=== PATIENT | male | born 1950 | race Caucasian/White ===

== ENCOUNTER → 2016-03-04 12:28 | Outpatient (CLI) | payer MEDICARE, BC ==
[2015-08-15 15:21] VITALS: BMI 27.4
[~2016-03-04 12:28] MED LIST: FLUTICASONE PRO16 GM NASAL; LEVAQUIN500 MG PO; MUCINEX DM ER1 EAC1 PO; PREDNISONE20 MG PO; PROTONIX40 MG PO; RESTORIL15 MG PO; SINGULAIR10 MG PO; ULTRAM50 MG PO
== END | disposition home or self-care (01) ==
LOC: D.US 12:28
DX: I65.23 Occlusion and stenosis of bilateral carotid arteries (principal)

== ENCOUNTER → 2016-11-22 07:27 | Outpatient (CLI) | payer MEDICARE, BC ==
[2015-08-15 15:21] VITALS: BMI 27.4
== END | disposition home or self-care (01) ==
LOC: D.RT 07:27
DX: J44.9 Chronic obstructive pulmonary disease, unspecified (principal)

== ENCOUNTER → 2017-06-02 13:42 | Outpatient (CLI) | payer MEDICARE, BC ==
[2015-08-15 15:21] VITALS: BMI 27.4
== END | disposition home or self-care (01) ==
LOC: D.US 13:42
DX: I65.23 Occlusion and stenosis of bilateral carotid arteries (principal)

== ENCOUNTER 2018-01-26 12:24 | Outpatient (CLI) | payer MEDICARE, BC ==
[2018-02-02] MEDS ORDERED: INCRUSE ELLI62.5 MCG INH (10:25)
[2018-02-02] MEDS ORDERED: XALATAN 0.0052.5 ML EACH EYE (10:26)
[2018-02-17 18:04] VITALS: BMI 29.5
== END 2018-01-26 12:25 | disposition home or self-care (01) ==
LOC: D.RT 12:24
DX: J44.9 Chronic obstructive pulmonary disease, unspecified (principal)

== ENCOUNTER → 2018-02-02 08:15 | Outpatient (CLI) | payer MEDICARE, BC ==
[2015-08-15 15:21] VITALS: BMI 27.4
[~2018-02-02 08:15] MED LIST changes: +INCRUSE ELLI62.5 MCG INH; +NORCO 10-325 TA1 TAB PO; +XALATAN 0.0052.5 ML EACH EYE
== END | disposition home or self-care (01) ==
LOC: D.CT 08:00
DX: C85.90 Non-Hodgkin lymphoma, unspecified, unspecified site (principal)

== ENCOUNTER 2018-02-03 06:33 | Day surgery (SDC) | payer MEDICARE, BC ==
[2018-02-02 10:18] LABS: BASOPHILS 0.4 % (0-2); EOSINOPHILS 1.7 % (0-7); HEMATOCRIT 22.6 % (42.0-54.0); HEMOGLOBIN 7.7 g/dL (13.5-17.5); IMMATURE GRANULOCYTES 0.4 % (0-5); LYMPHOCYTES 66.1 % (15-50); MCH 33.6 pg (26.0-34.0); MCHC 34.1 g/dL (31.0-37.0); MCV 98.7 fL (80.0-100.0); MEAN PLATELET VOLUME 9.5 fL (7.4-10.4); MONOCYTES 0.8 % (2-11); NEUTROPHILS 30.6 % (40-80); RBC 2.29 10x6/uL (4.20-6.10); WBC 2.4 10x3/uL (4.8-10.8)
[2018-02-02 10:19] LABS: PLATELET COUNT 57 10x3/uL (130-400)
[2018-02-02 10:31] LABS: APTT 29.6 SECONDS (22.8-39.4); INR 1.03 (0.85-1.17)
[~2018-02-03] VITALS: Ht 175.3 cm; Wt 90.7 kg
--- NOTE | ~2018-02-03 | OP ---
PATIENT NAME: PRETTY GUEVARA MEDICAL RECORD: [id number] :[birth year] LOCATION:D.OPS ADMISSION DATE: SURGEON: VLAD KERNS MD DATE OF OPERATION: 02/03/2018 PREOPERATIVE DIAGNOSES: 1. Lymphoma. 2. Coronary artery disease. 3. Hyperlipidemia. POSTOPERATIVE DIAGNOSES: 1. Lymphoma. 2. Coronary artery disease. 3. Hyperlipidemia. PROCEDURE: 1. Left subclavian vein PowerPort placement. 2. Fluoroscopic interpretation. SURGEON: Vlad Kerns MD REPORT OF PROCEDURE: The patient's left chest was prepped and draped in sterile fashion. A needle was used to cannulate the left subclavian vein and a guidewire was advanced with ease. Fluoro was used to note that the wire was in good position in the venous system. A skin incision was made on the left superior lateral chest and a subcutaneous pouch was made over the pectoral fascia. The catheter was tunneled between this pouch and the wire exit site. The port was then sutured to the pectoral fascia using interrupted 2-0 Prolenes times 2. The catheter was cut with a beveled tip at 22 cm. The dilator trocar device was then placed over the wire and the wire and dilator were removed. The catheter was advanced through the trocar and the trocar was then removed. The catheter aspirated nonpulsatile dark blood and flushed easily with heparinized saline. The Fluoro was used to note that the tip of the catheter was in good position at the right atrial superior vena caval junction. The subcutaneous tissues were then reapproximated with interrupted 3-0 Vicryl and the skin was closed with running subcutaneous 5-0 Monocryl. COMPLICATIONS: None. CONDITION: Stable. ANESTHESIA: General endotracheal and local. BLOOD LOSS: Minimal. TRANSINT:[id number] Voice Confirmation ID: [id number] DOCUMENT ID: [id number] OPERATIVE REPORT [id number] GUEVARAPRETTY NAVARRETE VLAD STRICKLAND MD CC: MONALISA JETT MD [id number] DICTATION DATE: 02/03/18 0943 BROADCAST OPERATIONS ENGINEER: 02/03/18 1113 REG [facility] [address] [place] [address]
[~2018-02-03 06:33] MED LIST changes: -NORCO 10-325 TA1 TAB PO
[2018-02-03 07:43] VITALS: BP 114/68; Ht 175.3 cm; Wt 90.7 kg
[2018-02-03] MEDS ORDERED: NORCO 10-325 TA1 TAB PO (09:39)
== END 2018-02-03 11:45 | disposition home or self-care (01) ==
LOC: D.OPS 06:33 → D.PAN 08:45 → D.OPS 08:45
PROVIDERS: Anesthesiology
DX: C85.90 Non-Hodgkin lymphoma, unspecified, unspecified site (principal); I25.10 Atherosclerotic heart disease of native coronary artery without angina pectoris; E78.5 Hyperlipidemia, unspecified; Z01.812 Encounter for preprocedural laboratory examination

== ENCOUNTER 2018-02-15 11:14 | Inpatient (IN) | payer MEDICARE, BC ==
[~2018-02-15] VITALS: Ht 175.3 cm; Wt 90.7 kg
--- NOTE | ~2018-02-15 | MORECARE ---
CASE MANAGEMENT DISCHARGE SUMMARY PATIENT: PRETTY GUEVARA UNIT: [id number] ADM DATE: 02/15/18 AGE: 67 : 49 SEX: M ROOM/BED: D.2236 AUTHOR: ABDOUL CELAYA PHYSICIAN: REFERRING PHYSICIAN: MONALISA JETT MD DATE OF SERVICE: 02/16/18 Discharge Plan Patient Name: PRETTY [facility]UEVARA [facility] [facility] 1950 Planned Disposition: Home Anticipated Discharge Date: Discharge Date: Expected LOS: Initial Reviewer: [email or web address] Initial Review Date: 02/16/2018 Generated: 02/16/18 4:08 pm DCPIA - Discharge Planning Initial Assessment Updated by [email or web address]: Mary Mims on 02/16/18 3:06 pm * Is the patient Alert and Oriented? Yes * How many steps to enter\exit or inside your home? 1/0 * PCP Dr. Jett * Pharmacy [facility] * Preadmission Environment Home with Family * ADLs Independent * Equipment Bedside Commode CPAP Nebulizer Walker * List name and contact numbers for known caregivers / representatives who currently or will assist patient after discharge: D[facility] - [phone] [facility] [phone] * Verbal permission to speak to the caregivers and representatives has been obtained from the patient. Yes * Community resources currently utilized None * Additional services required to return to the preadmission environment? No * Can the patient safely return to the preadmission environment? Yes * Has this patient been hospitalized within the prior 30 days at any hospital? No Patient Name: PRETTY GUEVARA Page [id number] at 1508 All edits/amendments must be made on the electronic document DICTATION DATE: 02/16/18 1507 GOLF CLUB ASSEMBLER: BRITTNEY 02/16/18 1507 RPT#: [id number] DC DATE: STATUS: ADM IN [facility] [address] [place] [address] END OF REPORT
--- NOTE | ~2018-02-15 | MORECARE ---
CASE MANAGEMENT DISCHARGE SUMMARY PATIENT: PRETTY GUEVARA UNIT: [id number] ADM DATE: 02/15/18 AGE: 67 : 49 SEX: M ROOM/BED: D.2236 AUTHOR: ABDOUL CELAYA PHYSICIAN: REFERRING PHYSICIAN: MONALISA JETT MD DATE OF SERVICE: 02/23/18 Discharge Plan Patient Name: PRETTY GUEVARA Facility: [facility]:[place] : 1950 Planned Disposition: Home Anticipated Discharge Date: Discharge Date: 02/21/2018 Expected LOS: Initial Reviewer: [email or web address] Initial Review Date: 02/16/2018 Generated: 02/23/18 3:45 pm Comments DCP- Discharge Planning Updated by [email or web address]: Mary Mims on 02/16/18 2:[address] Patient Name: PRETTY GUEVARA Admission Status: ER Accout number: [id number] Admission Date: 02-15-2018 : 1950 Admission Diagnosis: Attending: MONALISA JETT Current LOS: 1 Anticipated DC Date: Planned Disposition: Home Primary Insurance: MEDICARE A & B Discharge Planning Comments: CM met with patient and to discus discharge planning. He states he lives with his . He is independent with all ADL's. States he has not driven recently, but his drives him where he needs to go. I discussed availability of inpatient rehab, SNF, home health and DME. He states his discharge plan is to return home with his , he does not need additional DME and declines home health. No needs identified. CM will continue to follow and assist with discharge planning/needs. Exploitation Analyst: Mary Mims DCPIA - Discharge Planning Initial Assessment Updated by [email or web address]: Mary Mims on 02/16/18 3:06 pm * Is the patient Alert and Oriented? Yes * How many steps to enter\exit or inside your home? 1/0 * PCP Dr. Jett * Pharmacy [facility] on [address] in [place] * Preadmission Environment Home with Family * ADLs Independent * Equipment Bedside Commode CPAP Nebulizer Walker * List name and contact numbers for known caregivers / representatives who currently or will assist patient after discharge: Dina - - [phone] [facility] [phone] * Verbal permission to speak to the caregivers and representatives has been obtained from the patient. Yes * Community resources currently utilized None * Additional services required to return to the preadmission environment? No * Can the patient safely return to the preadmission environment? Yes * Has this patient been hospitalized within the prior 30 days at any hospital? No Last DP export: 02/16/18 2:16 Patient Name: PRETTY GUEVARA Page [id number] at 1445 All edits/amendments must be made on the electronic document DICTATION DATE: 02/23/181443 MOLD CAPPER: BRITTNEY 02/23/18 144 RPT#: [id number] DC DATE:02/21/18 STATUS: DIS IN [facility] [address] [place] [address] END OF REPORT
--- NOTE | ~2018-02-15 | MORECARE ---
CASE MANAGEMENT DISCHARGE SUMMARY PATIENT: PRETTY GUEVARA UNIT: [id number] ADM DATE: 02/15/18 AGE: 67 : 49 SEX: M ROOM/BED: D.2236 AUTHOR: ABDOUL CELAYA PHYSICIAN: REFERRING PHYSICIAN: MONALISA JETT MD DATE OF SERVICE: 02/16/18 Discharge Plan Patient Name: RPETTY GUEVARA Facility: [facility]:[place] : 1950 Planned Disposition: Home Anticipated Discharge Date: Discharge Date: Expected LOS: Initial Reviewer: [email or web address] Initial Review Date: 02/16/2018 Generated: 02/16/18 4:16 pm Comments DCP- Discharge Planning Updated by [email or web address]: Mary Mims on 02/16/18 2:[address] Patient Name: PRETTY GUEVARA Admission Status: ER Accout number: [id number] Admission Date: 02-15-2018 : 1950 Admission Diagnosis: Attending: MONALISA JETT Current LOS: 1 Anticipated DC Date: Planned Disposition: Home Primary Insurance: MEDICARE A & B Discharge Planning Comments: CM met with patient and to discus discharge planning. He states he lives with his . He is independent with all ADL's. States he has not driven recently, but his drives him where he needs to go. I discussed availability of inpatient rehab, SNF, home health and DME. He states his discharge plan is to return home with his , he does not need additional DME and declines home health. No needs identified. CM will continue to follow and assist with discharge planning/needs. Roll Slicing Machine Tender: Mary Mims DCPIA - Discharge Planning Initial Assessment Updated by [email or web address]: Mary Mims on 02/16/18 3:06 pm * Is the patient Alert and Oriented? Yes * How many steps to enter\exit or inside your home? 1/0 * PCP Dr. Jett * Pharmacy [facility] on [address] in [place] * Preadmission Environment Home with Family * ADLs Independent * Equipment Bedside Commode CPAP Nebulizer Walker * List name and contact numbers for known caregivers / representatives who currently or will assist patient after discharge: Dina - - [phone] Cell - [phone] * Verbal permission to speak to the caregivers and representatives has been obtained from the patient. Yes * Community resources currently utilized None * Additional services required to return to the preadmission environment? No * Can the patient safely return to the preadmission environment? Yes * Has this patient been hospitalized within the prior 30 days at any hospital? No Last DP export: 02/16/18 2:08 Patient Name: PRETTY GUEVARA Page [id number] at 1516 All edits/amendments must be made on the electronic document DICTATION DATE: 02/16/181515 MEDICAL LEGAL INVESTIGATOR: BRITTNEY 02/16/181515 RPT#: [id number] DC DATE: STATUS: ADM IN [facility] [address] [place] [address] END OF REPORT
[~2018-02-15 11:14] MED LIST changes: +NORCO 10-325 TA1 TAB PO
[2018-02-15 12:30] LABS: BASOPHILS 0 % (0-2); EOSINOPHILS 0 % (0-7); IMMATURE GRANULOCYTES 2.5 % (0-5); LYMPHOCYTES 92.5 % (15-50); MCH 33.3 pg (26.0-34.0); MCHC 33.7 g/dL (31.0-37.0); MCV 98.8 fL (80.0-100.0); MEAN PLATELET VOLUME 9.9 fL (7.4-10.4); MONOCYTES 0 % (2-11); RDW 15.1 % (11.5-14.5)
[2018-02-15 12:44] LABS: ALKALINE PHOSPHATASE 117 U/L (46-116); ALT (SGPT) 38 U/L (10-68); BILIRUBIN - TOTAL 0.82 mg/dL (0.2-1.3); CALC OSMOLALITY 274 mosm/kg (275-300); CALCIUM 8.5 mg/dL (8.5-10.1); CARBON DIOXIDE 23.3 mmol/L (21.0-32.0); CHLORIDE - SERUM 99 mmol/L (98-107); CREATININE - SERUM 1.3 mg/dL (0.6-1.3); POTASSIUM - SERUM 3.7 mmol/L (3.5-5.1); PROTEIN - SERUM 7.8 g/dL (6.4-8.2); SODIUM 136 mmol/L (136-145); UREA NITROGEN 18 mg/dL (7-18); eGFR NON AFRICAN AMERICAN 58 mL/min (90-120)
[2018-02-15 12:45] LABS: GLUCOSE 122 mg/dL (74-106)
[2018-02-15 12:46] LABS: HEMOGLOBIN 5.6 g/dL (13.5-17.5); RBC 1.68 10x6/uL (4.20-6.10); WBC 0.8 10x3/uL (4.8-10.8)
[2018-02-15 12:47] LABS: HEMATOCRIT 16.6 % (42.0-54.0); PLATELET COUNT 48 10x3/uL (130-400)
[2018-02-15 12:55] LABS: CKMB 0.2 U/L (0.0-3.6); CREATINE KINASE 42 UL (21-232); MAGNESIUM - SERUM 1.9 mg/dL (1.8-2.4); PRO BNP 646 pg/mL (0-125); TROPONIN-I < 0.017 ng/mL (0.000-0.060)
[2018-02-15 13:47] VITALS: BP 114/57
[2018-02-15 14:34] LABS: APPEARANCE CLEAR (CLEAR); BILIRUBIN NEGATIVE (NEGATIVE); COLOR YELLOW (YELLOW); GLUCOSE NEGATIVE (NEGATIVE); KETONE NEGATIVE (NEGATIVE); NITRITE NEGATIVE (NEGATIVE); PROTEIN 1+ mg/dL (NEGATIVE); UROBILINOGEN NORMAL (NORMAL)
[2018-02-15 14:35] LABS: RED CELLS - URINE 0-5 /hpf (0-5); WHITE CELLS - URINE 0-5 /hpf (0-5)
[2018-02-15 14:36] LABS: BACTERIA FEW /hpf (NONE SEEN)
[2018-02-15 15:01] VITALS: BP 124/70
[2018-02-15 21:14] VITALS: BP 112/62
[2018-02-16 04:19] VITALS: BP 98/56
[2018-02-16 04:58] LABS: BASOPHILS 0 % (0-2); EOSINOPHILS 0 % (0-7); LYMPHOCYTES 88.7 % (15-50); MCH 31.5 pg (26.0-34.0); MCHC 34.2 g/dL (31.0-37.0); MEAN PLATELET VOLUME 8.9 fL (7.4-10.4); MONOCYTES 2.8 % (2-11); NEUTROPHILS 8.5 % (40-80); RDW 16.3 % (11.5-14.5)
[2018-02-16 05:16] LABS: ALBUMIN 2.3 g/dL (3.4-5.0); ANION GAP 13.6 mmol/L (8-16); BILIRUBIN - TOTAL 2.04 mg/dL (0.2-1.3); CALCIUM 7.5 mg/dL (8.5-10.1); CREATININE - SERUM 1.3 mg/dL (0.6-1.3); POTASSIUM - SERUM 3.6 mmol/L (3.5-5.1); PROTEIN - SERUM 6.4 g/dL (6.4-8.2)
[2018-02-16 05:27] LABS: HEMATOCRIT 19.9 % (42.0-54.0); HEMOGLOBIN 6.8 g/dL (13.5-17.5); MCV 92.1 fL (80.0-100.0); RBC 2.16 10x6/uL (4.20-6.10); WBC 0.7 10x3/uL (4.8-10.8)
[2018-02-16 05:28] LABS: PLATELET COUNT 27 10x3/uL (130-400)
[2018-02-16 09:02] LABS: BASOPHILS 0 % (0-2); EOSINOPHILS 0 % (0-7); HEMATOCRIT 21.3 % (42.0-54.0); LYMPHOCYTES 90.9 % (15-50); MCHC 34.7 g/dL (31.0-37.0); MCV 92.2 fL (80.0-100.0); MEAN PLATELET VOLUME 10.1 fL (7.4-10.4); MONOCYTES 0 % (2-11); NEUTROPHILS 9.1 % (40-80); RBC 2.31 10x6/uL (4.20-6.10); RDW 16.5 % (11.5-14.5)
[2018-02-16 09:23] VITALS: BP 146/66
[2018-02-16 09:28] LABS: HEMOGLOBIN 7.4 g/dL (13.5-17.5); PLATELET COUNT 31 10x3/uL (130-400); WBC 0.8 10x3/uL (4.8-10.8)
[2018-02-16 12:17] VITALS: BP 114/72
[2018-02-16 13:20] VITALS: BMI 29.5
[2018-02-16 20:00] VITALS: BP 119/46
[2018-02-17] VITALS (7 sets, daily range): BP systolic 102–149; BP diastolic 48–89; Ht 175.3 cm; Wt 90.7 kg
[2018-02-17 07:20] LABS: BASOPHILS 0 % (0-2); EOSINOPHILS 0 % (0-7); HEMATOCRIT 22.2 % (42.0-54.0); HEMOGLOBIN 7.6 g/dL (13.5-17.5); MCH 31.3 pg (26.0-34.0); MCHC 34.2 g/dL (31.0-37.0); MCV 91.4 fL (80.0-100.0); MEAN PLATELET VOLUME 8.3 fL (7.4-10.4); RBC 2.43 10x6/uL (4.20-6.10); RDW 16.2 % (11.5-14.5)
[2018-02-17 07:25] LABS: CALCIUM 7.7 mg/dL (8.5-10.1); CARBON DIOXIDE 23.5 mmol/L (21.0-32.0); CREATININE - SERUM 1.2 mg/dL (0.6-1.3); POTASSIUM - SERUM 3.5 mmol/L (3.5-5.1)
[2018-02-17 07:26] LABS: WBC 1.1 10x3/uL (4.8-10.8)
[2018-02-17 07:27] LABS: PLATELET COUNT 25 10x3/uL (130-400)
[2018-02-18] VITALS (7 sets, daily range): BP systolic 109–133; BP diastolic 61–81
[2018-02-18 05:53] LABS: MCH 31.4 pg (26.0-34.0); MCHC 34.2 g/dL (31.0-37.0); MCV 91.9 fL (80.0-100.0); MEAN PLATELET VOLUME 9.7 fL (7.4-10.4)
[2018-02-18 06:19] LABS: ANION GAP 12.5 mmol/L (8-16); BILIRUBIN - TOTAL 0.87 mg/dL (0.2-1.3); CALCIUM 7.5 mg/dL (8.5-10.1); CARBON DIOXIDE 24.9 mmol/L (21.0-32.0); CREATININE - SERUM 1.1 mg/dL (0.6-1.3); POTASSIUM - SERUM 3.4 mmol/L (3.5-5.1); PROTEIN - SERUM 6.2 g/dL (6.4-8.2)
[2018-02-18 06:31] LABS: HEMATOCRIT 19.3 % (42.0-54.0); HEMOGLOBIN 6.6 g/dL (13.5-17.5)
[2018-02-18 06:32] LABS: PLATELET COUNT 29 10x3/uL (130-400)
[2018-02-18 07:18] LABS: ANISOCYTOSIS OCC; EOSINOPHILS 2 % (0-7); LYMPHOCYTES 64 % (15-50); NEUTROPHILS 30 % (40-80); PLATELET ESTIMATE DECREASED; ROULEAUX OCC; TOXIC GRANULATION OCC
[2018-02-19] VITALS (11 sets, daily range): BP systolic 103–159; BP diastolic 43–81
[2018-02-19 06:40] LABS: BASOPHILS 0 % (0-2); EOSINOPHILS 1.1 % (0-7); LYMPHOCYTES 62.5 % (15-50); MCH 31.3 pg (26.0-34.0); MCHC 34.2 g/dL (31.0-37.0); MCV 91.6 fL (80.0-100.0); MEAN PLATELET VOLUME 9.9 fL (7.4-10.4); MONOCYTES 1.1 % (2-11); NEUTROPHILS 35.3 % (40-80); RBC 2.14 10x6/uL (4.20-6.10); RDW 15.7 % (11.5-14.5)
[2018-02-19 06:47] LABS: HEMATOCRIT 19.6 % (42.0-54.0); HEMOGLOBIN 6.7 g/dL (13.5-17.5); PLATELET COUNT 25 10x3/uL (130-400); WBC 0.9 10x3/uL (4.8-10.8)
[2018-02-20 04:00] VITALS: BP 125/73
[2018-02-20 07:19] LABS: BASOPHILS 0 % (0-2); EOSINOPHILS 0 % (0-7); IMMATURE GRANULOCYTES 7.7 % (0-5); LYMPHOCYTES 55.6 % (15-50); MCH 31.1 pg (26.0-34.0); MCHC 34.5 g/dL (31.0-37.0); MCV 90.2 fL (80.0-100.0); MEAN PLATELET VOLUME 9.9 fL (7.4-10.4); MONOCYTES 0.9 % (2-11); NEUTROPHILS 35.8 % (40-80); RDW 15.9 % (11.5-14.5)
[2018-02-20 07:30] LABS: HEMATOCRIT 27.5 % (42.0-54.0); HEMOGLOBIN 9.5 g/dL (13.5-17.5); PLATELET COUNT 27 10x3/uL (130-400); RBC 3.05 10x6/uL (4.20-6.10); WBC 1.2 10x3/uL (4.8-10.8)
[2018-02-20 07:34] LABS: CALC OSMOLALITY 284 mosm/kg (275-300); CALCIUM 8.1 mg/dL (8.5-10.1); CARBON DIOXIDE 23.9 mmol/L (21.0-32.0); CHLORIDE - SERUM 106 mmol/L (98-107); GLUCOSE 142 mg/dL (74-106); POTASSIUM - SERUM 3.7 mmol/L (3.5-5.1); SODIUM 141 mmol/L (136-145); UREA NITROGEN 18 mg/dL (7-18); eGFR NON AFRICAN AMERICAN 79 mL/min (90-120)
[2018-02-20 08:51] VITALS: BP 129/75
[2018-02-20 15:27] VITALS: BP 120/68
[2018-02-20 20:28] VITALS: BP 124/76
[2018-02-20 23:54] VITALS: BP 137/81
[2018-02-21 04:32] VITALS: BP 133/75
[2018-02-21 05:59] LABS: BASOPHILS 0 % (0-2); EOSINOPHILS 0 % (0-7); HEMATOCRIT 27.7 % (42.0-54.0); HEMOGLOBIN 9.5 g/dL (13.5-17.5); IMMATURE GRANULOCYTES 9.9 % (0-5); LYMPHOCYTES 52.5 % (15-50); MCH 31.1 pg (26.0-34.0); MCHC 34.3 g/dL (31.0-37.0); MCV 90.8 fL (80.0-100.0); MEAN PLATELET VOLUME 11.8 fL (7.4-10.4); NEUTROPHILS 34.6 % (40-80); RBC 3.05 10x6/uL (4.20-6.10); RDW 15.9 % (11.5-14.5)
[2018-02-21 06:01] LABS: PLATELET COUNT 28 10x3/uL (130-400)
[2018-02-21 09:00] VITALS: BP 130/72
[2018-02-21] MEDS ORDERED: PREDNISONE20 MG PO (09:27)
[2018-02-21 12:30] VITALS: BP 130/71
== END 2018-02-21 14:43 | disposition home or self-care (01) | DRG 815 ==
LOC: D.ER 11:14 → D.MS 14:56
PROVIDERS: Emergency Medicine; Family Medicine; Legal Medicine
DX: D72.819 Decreased white blood cell count, unspecified (principal); C85.90 Non-Hodgkin lymphoma, unspecified, unspecified site; T82.594A Other mechanical complication of infusion catheter, initial encounter; D69.6 Thrombocytopenia, unspecified; D64.9 Anemia, unspecified

== ENCOUNTER 2018-03-18 12:41 | Outpatient (CLI) | payer MEDICARE, BC ==
[~2018-03-18] VITALS: Ht 177.8 cm; Wt 94.5 kg
[2018-03-18 13:24] VITALS: BP 104/66; Ht 177.8 cm; Wt 94.5 kg
--- NOTE | 2018-03-18 18:49 | NUR ---
1800 PT. RECEIVED FROM SLEMA MARTINEZ RN. 2ND UNIT BLOOD IS INFUSING VIA PORT LT CHEST AT 250/CC/HR. 1830 PT DENIES PROBLEMS. AT BEDSIDE. PORT PATENT BLOOD INFUSING AT 250/CC/HR.
--- NOTE | 2018-03-18 18:59 | NUR ---
1855 ROOM CHECK, NO PROBLEMS PER PT. IV SITE PATENT.
--- NOTE | 2018-03-18 19:26 | NUR ---
192 BLOOD HAS COMPLETED, LINE BEING FLUSHED WITH NS.
--- NOTE | 2018-03-18 20:26 | NUR ---
2000 PORT FLUSHED PER EMAR WITH 20CC NS THEN 5CC HEP FLUSH TILLEY NEEDLE REMOVED INTACT BANDAID TO SKIN. PT UP TO BR VOIDS QS. DC INSTS REVIEWED VOICED UNDERSTANDING RELEASED IN WC, HISTOLOGY MANAGER HOME.
== END 2018-03-18 20:00 | disposition home or self-care (01) ==
LOC: D.OPS 12:41
DX: I65.29 Occlusion and stenosis of unspecified carotid artery (principal); R97.20 Elevated prostate specific antigen [PSA]; R50.9 Fever, unspecified; C85.90 Non-Hodgkin lymphoma, unspecified, unspecified site; D61.818 Other pancytopenia; R53.1 Weakness

== ENCOUNTER 2018-04-01 11:05 | Day surgery (SDC) | payer MEDICARE, BC ==
[~2018-04-01] VITALS: Ht 177.8 cm; Wt 93.2 kg
[2018-04-01 12:42] VITALS: BP 114/63; Ht 177.8 cm; Wt 93.2 kg
--- NOTE | 2018-04-01 14:30 | NUR ---
ASSUMED CARE OF PT. UNIT #1 PRBC'S COMPLETED WITHOUT ADVERSE EFFECTS.
--- NOTE | 2018-04-01 15:05 | NUR ---
UNIT #2 PRBC'S INITIATED VIA LEFT INFUSA PORT. NO C/O VOICED.
--- NOTE | 2018-04-01 16:05 | NUR ---
1600 RECEIVED REPORT FROM LEVI MANRIQUE RN. PT. RESTING ON LEFT SIDE, BLOOD INFUSING VIA INFUSAPORT AT 250/CC/HR. CALL LIGHT AT SIDE.
--- NOTE | 2018-04-01 17:55 | NUR ---
1710 TRANSFUSION HAS COMPLETED PORT FLUSHED PER APR AND TILLEY NEEDLE DC'D INTACT RELEASED IN WC HAIR SPINNER HOME. DENIES PROBLEMS.
== END 2018-04-01 17:10 | disposition home or self-care (01) ==
LOC: D.OPS 11:05
DX: C85.90 Non-Hodgkin lymphoma, unspecified, unspecified site (principal); D61.810 Antineoplastic chemotherapy induced pancytopenia; R53.1 Weakness

== ENCOUNTER 2018-04-12 14:41 | Outpatient (CLI) | payer MEDICARE, BC ==
[~2018-04-12] VITALS: Ht 177.8 cm; Wt 90.9 kg
[2018-04-12 15:08] VITALS: BP 130/75; Ht 177.8 cm; Wt 90.9 kg
--- NOTE | 2018-04-12 15:45 | NUR ---
RECIEVED PT OUTPATIENT. INITIAL OP ADMISSION ASSESSMENT COMPLETE. PT VSS, AAOX3, VERA RN, ASSESSED PT PORT. PT TOLERATE WELL. PRE-MED TYLENOL AND BENADRYL GIVEN. PT AWAITING PRBCS.
--- NOTE | 2018-04-12 17:08 | NUR ---
PATIENT HERE FROM OUTPATIENT RECEIVING BLOOD AND STATES HE IS HUNGRY AND DINNER IS BEING SERVED. PATIENT STATES HE IN NOT DIABETIC AND CONSULTED WITH CIRCULAR STUFFER, ABLE TO ORDER PATIENT A DINNER TRAY. REGULAR DIET ORDERED UNDER PRIMARY PHYSICIAN.
--- NOTE | 2018-04-12 17:13 | NUR ---
REGULAR DIET ORDERED, SPOKE WITH BAO IN DIETARY AND GOT PATIENT A DINNER TRAY ORDERED.
[2018-04-12 19:50] VITALS: BP 114/69
--- NOTE | 2018-04-12 20:00 | NUR ---
CALLED DR GIANG DATA LIBRARIAN FOR DR JETT RE: PATIENT'S REQUEST TO STAY UNTIL 0800. ESTIMATED BLOOD TRANSFUSION WILL BE FINISHED APPROX 0300 AND PATIENT DID NOT WANT TO MAKE TWO ROUND TRIPS IN THE MORNING. STATED HE HAS TO GO TO DR JETT'S OFFICE IN THE MORNING. DR GIANG STATED HE COULD STAY IN THE HOSPITAL OVERNIGHT AND DISCHARGE IN THE A.M.
[2018-04-12 23:52] VITALS: BP 129/78
--- NOTE | 2018-04-13 | NUR ---
FIRST UNIT PRBC'S FINISHED. VS STABLE.
--- NOTE | 2018-04-13 03:30 | NUR ---
SECOND UNIT PRBC'S FINISHED. REQUESTED LIGHTS OFF TO SLEEP.
[2018-04-13 03:45] VITALS: BP 124/79
--- NOTE | 2018-04-13 09:53 | NUR ---
OP DISCHARGE INSTRUCTION READ TO PT. PT VERBALIZED UNDERSTANDING. PT IV CATH TO PT PORT TAKEN OUT, TIP OF THE CATHETER INTACT, PT TOLERATED WELL, NO S/S OF BLEEDING NOTED. SITE COVERED WITH 2X2 AND TAPED. PT DC HOME ON WHEELCHAIR. PT DC'D
== END 2018-04-13 08:00 | disposition home or self-care (01) ==
LOC: D.OPS 14:41 → D.M2 14:41 → D.OPS 04-13 08:00
DX: F41.9 Anxiety disorder, unspecified (principal); I65.29 Occlusion and stenosis of unspecified carotid artery; D70.2 Other drug-induced agranulocytosis; R97.20 Elevated prostate specific antigen [PSA]; R50.9 Fever, unspecified; C85.90 Non-Hodgkin lymphoma, unspecified, unspecified site; D61.810 Antineoplastic chemotherapy induced pancytopenia; R53.1 Weakness

== ENCOUNTER → 2018-04-16 20:48 | Outpatient (CLI) | payer MEDICARE, BC ==
[2018-04-12 15:08] VITALS: BMI 28.7
== END | disposition home or self-care (01) ==
LOC: D.LABREF 20:48
DX: R53.83 Other fatigue (principal)

== ENCOUNTER → 2018-04-29 11:56 | Outpatient (CLI) | payer MEDICARE, BC ==
[2018-04-12 15:08] VITALS: BMI 28.7
[2018-04-29 12:32] LABS: HEMATOCRIT 27.1 % (42.0-54.0); HEMOGLOBIN 9.2 g/dL (13.5-17.5); MCH 32.1 pg (26.0-34.0); MCHC 33.9 g/dL (31.0-37.0); MCV 94.4 fL (80.0-100.0); MEAN PLATELET VOLUME 9.3 fL (7.4-10.4); RBC 2.87 10x6/uL (4.20-6.10); RDW 22.1 % (11.5-14.5)
[2018-04-29 12:33] LABS: PLATELET COUNT 107 10x3/uL (130-400)
[2018-04-29 12:37] LABS: WBC 1.5 10x3/uL (4.8-10.8)
[2018-04-29 13:50] LABS: BASOPHILS 1 % (0-2); EOSINOPHILS 2 % (0-7); LYMPHOCYTES 36 % (15-50); MONOCYTES 3 % (2-11); NEUTROPHILS 57 % (40-80); PLATELET ESTIMATE NORMAL; ROULEAUX OCC
[2018-04-29 13:51] LABS: ANISOCYTOSIS OCC; POIKILOCYTOSIS OCC
== END | disposition home or self-care (01) ==
LOC: D.LABREF 11:56
PROVIDERS: ATTEND Legal Medicine
DX: D61.818 Other pancytopenia (principal)

== ENCOUNTER 2018-05-29 11:24 | Outpatient (CLI) | payer MEDICARE, BC ==
[~2018-05-29] VITALS: Ht 177.8 cm; Wt 90.9 kg
[2018-05-29 13:22] VITALS: BP 110/72; Ht 177.8 cm; Wt 90.9 kg
--- NOTE | 2018-05-29 15:10 | NUR ---
FIRST UNIT PRBC'S FINISHED TRANSFUSING, SECOND UNIT PRBC'S PRIMED TUBING, VITAL SIGNS TAKEN, TEMP 100.5. PATIENT ASYMPTOMATIC. PORT FLUSHED, SECOND UNIT NOT STARTED. BLOOD BANK CALLED. 1514 DR JETT PAGED. 1535 DR JETT'S AUTO WINDER SHARMILA GIANG APN RETURNS CALL. ORDER RECEIVED TO GIVE PATIENT TYLENOL 625 MG PO AND RESTART BLOOD IN AN HOUR IF TEMP BELOW 99
--- NOTE | 2018-05-29 17:02 | NUR ---
PATIENT WITHOUT COMPLAINTS, TEMP 98.0 1705 SECOND UNIT PRBC'S STARTED TRANSFUSING AT 70 CC/HR
--- NOTE | 2018-05-29 17:30 | NUR ---
SECOND UNIT PRBC'S TRANSFUSING AT 200 CC/HR, DENIES COMPLAINTS. NO SIGNS OF TRANSFUSION REACTION
--- NOTE | 2018-05-29 18:45 | NUR ---
PATIENT WITHOUT SIGNS OR SYMPTOMS OF TRANSFUSION REACTION, DISCHARGED HOME VIA AMBULATORY AFTER PORT FLUSHED WITH SALINE AND HEPARIN AND AFTER REVIEWING DISCHARGE INSTRUCTIONS INCLUDING POST TRANSFUSION INSTRUCTIONS
== END 2018-05-29 18:15 | disposition home or self-care (01) ==
LOC: D.OPS 11:24
DX: D64.9 Anemia, unspecified (principal); F41.9 Anxiety disorder, unspecified; I25.10 Atherosclerotic heart disease of native coronary artery without angina pectoris; D70.2 Other drug-induced agranulocytosis; R97.20 Elevated prostate specific antigen [PSA]; R53.83 Other fatigue; R50.9 Fever, unspecified; C85.90 Non-Hodgkin lymphoma, unspecified, unspecified site; D61.810 Antineoplastic chemotherapy induced pancytopenia; R53.1 Weakness

== ENCOUNTER → 2018-06-10 11:28 | Outpatient (CLI) | payer MEDICARE, BC ==
[2018-05-29 13:22] VITALS: BMI 28.7
[2018-06-10 11:36] LABS: BASOPHILS 0.6 % (0-2); EOSINOPHILS 0.6 % (0-7); HEMATOCRIT 24.6 % (42.0-54.0); HEMOGLOBIN 8.5 g/dL (13.5-17.5); IMMATURE GRANULOCYTES 0.6 % (0-5); MCH 34.6 pg (26.0-34.0); MCHC 34.6 g/dL (31.0-37.0); MEAN PLATELET VOLUME 9.1 fL (7.4-10.4); MONOCYTES 1.8 % (2-11); NEUTROPHILS 41.4 % (40-80); PLATELET COUNT 112 10x3/uL (130-400); RBC 2.46 10x6/uL (4.20-6.10); RDW 21.9 % (11.5-14.5)
[2018-06-10 11:42] LABS: WBC 1.7 10x3/uL (4.8-10.8)
== END | disposition home or self-care (01) ==
LOC: D.LABREF 11:28
PROVIDERS: ATTEND Legal Medicine
DX: C85.92 Non-Hodgkin lymphoma, unspecified, intrathoracic lymph nodes (principal)

== ENCOUNTER → 2018-06-17 11:11 | Outpatient (CLI) | payer MEDICARE, BC ==
[2018-05-29 13:22] VITALS: BMI 28.7
[2018-06-17 13:10] LABS: HEMATOCRIT 23.2 % (42.0-54.0); MCH 33.9 pg (26.0-34.0); MCHC 34.5 g/dL (31.0-37.0); MCV 98.3 fL (80.0-100.0); MEAN PLATELET VOLUME 10.6 fL (7.4-10.4); RBC 2.36 10x6/uL (4.20-6.10)
[2018-06-17 13:19] LABS: PLATELET COUNT 142 10x3/uL (130-400)
[2018-06-17 13:55] LABS: EOSINOPHILS 2 % (0-7); LYMPHOCYTES 45 % (15-50); MONOCYTES 3 % (2-11); NEUTROPHILS 45 % (40-80); PLATELET ESTIMATE NORMAL
== END | disposition home or self-care (01) ==
LOC: D.LABREF 11:11
PROVIDERS: ATTEND Legal Medicine
DX: C85.92 Non-Hodgkin lymphoma, unspecified, intrathoracic lymph nodes (principal); D64.81 Anemia due to antineoplastic chemotherapy; C83.09 Small cell B-cell lymphoma, extranodal and solid organ sites

== ENCOUNTER 2019-01-30 14:56 | Outpatient (CLI) | payer MEDICARE, BC ==
[2019-01-30] MEDS ORDERED: IBUPROFEN400 MG PO (21:00)
[2019-01-30 22:02] VITALS: BMI 29.4
== END 2019-01-30 18:10 | disposition other institution (70) ==
LOC: D.OPS 14:56
PROVIDERS: ATTEND Legal Medicine
DX: I95.1 Orthostatic hypotension (principal); D69.6 Thrombocytopenia, unspecified; D72.819 Decreased white blood cell count, unspecified; C85.90 Non-Hodgkin lymphoma, unspecified, unspecified site; R50.9 Fever, unspecified; D64.9 Anemia, unspecified

== ENCOUNTER 2019-01-30 14:56 | Inpatient (IN) | payer MEDICARE, BC ==
[~2019-01-30] VITALS: Ht 177.8 cm; Wt 93.2 kg
[2019-01-30 15:55] LABS: BASOPHILS 0.3 % (0-2); EOSINOPHILS 0 % (0-7); HEMATOCRIT 30.1 % (42.0-54.0); HEMOGLOBIN 10.4 g/dL (13.5-17.5); IMMATURE GRANULOCYTES 0.3 % (0-5); LYMPHOCYTES 15.3 % (15-50); MCH 38.4 pg (26.0-34.0); MCHC 34.6 g/dL (31.0-37.0); MCV 111.1 fL (80.0-100.0); MEAN PLATELET VOLUME 9.5 fL (7.4-10.4); MONOCYTES 16.9 % (2-11); NEUTROPHILS 67.2 % (40-80); PLATELET COUNT 146 10x3/uL (130-400); RBC 2.71 10x6/uL (4.20-6.10); RDW 14.1 % (11.5-14.5)
[2019-01-30 16:00] VITALS: BP 125/57
[2019-01-30 16:07] LABS: CALC OSMOLALITY 276 mosm/kg (275-300); CALCIUM 8.6 mg/dL (8.5-10.1); CARBON DIOXIDE 28.3 mmol/L (21.0-32.0); CHLORIDE - SERUM 99 mmol/L (98-107); CREATININE - SERUM 1.1 mg/dL (0.6-1.3); GLUCOSE 131 mg/dL (74-106); POTASSIUM - SERUM 3.9 mmol/L (3.5-5.1); SODIUM 137 mmol/L (136-145); UREA NITROGEN 16 mg/dL (7-18); eGFR NON AFRICAN AMERICAN 70 mL/min (90-120)
[2019-01-30 16:22] LABS: ALBUMIN 3.2 g/dL (3.4-5.0); ALKALINE PHOSPHATASE 78 U/L (46-116); ALT (SGPT) 78 U/L (10-68); CKMB 0.2 U/L (0.0-3.6); CREATINE KINASE 28 UL (21-232); PROTEIN - SERUM 7.1 g/dL (6.4-8.2); TROPONIN-I < 0.017 ng/mL (0.000-0.060)
[2019-01-30 16:40] LABS: INR 1.16 (0.85-1.17); PROTIME 14.3 SECONDS (11.6-15.0)
[2019-01-30 16:41] LABS: APTT 43.6 SECONDS (22.8-39.4)
[2019-01-30 16:54] LABS: MAGNESIUM - SERUM 1.9 mg/dL (1.8-2.4); THYROID STIMULATING HORMONE 1.8 uIU/mL (0.36-3.74)
[2019-01-30 17:00] VITALS: BP 112/63
--- NOTE | 2019-01-30 17:48 | NUR ---
URINE SENT TO THE LAB
[2019-01-30 17:51] LABS: APPEARANCE CLEAR (CLEAR); BILIRUBIN NEGATIVE (NEGATIVE); COLOR YELLOW (YELLOW); GLUCOSE NEGATIVE (NEGATIVE); KETONE NEGATIVE (NEGATIVE); NITRITE NEGATIVE (NEGATIVE); PROTEIN 1+ mg/dL (NEGATIVE); SPECIFIC GRAVITY 1.015 (1.005-1.020); UROBILINOGEN NORMAL (NORMAL)
[2019-01-30 18:00] VITALS: BP 115/64
[2019-01-30 18:00] LABS: UDS - AMPHET NEGATIVE QUAL (NEGATIVE); UDS - BARB NEGATIVE QUAL (NEGATIVE); UDS - BENZO NEGATIVE QUAL (NEGATIVE); UDS - COCAINE NEGATIVE QUAL (NEGATIVE); UDS - OPIATE NEGATIVE QUAL (NEGATIVE); UDS - PCP NEGATIVE QUAL (NEGATIVE); UDS - THC NEGATIVE QUAL (NEGATIVE)
[2019-01-30 19:00] VITALS: BP 110/60
[2019-01-30 20:00] VITALS: BP 113/54
--- NOTE | 2019-01-30 20:50 | NUR ---
RECEIVED PT TO FLOOR FROM ER VIA WHEELCHAIR. PT ALERT & ORIENTED. VITALS SIGNS STABLE. REVIEWED HISTORY AND HOME MEDS. COMPLETE ASSESSMENT PER FLOW-SHEET. IV FLUIDS INFUSING. INSTRUCTED PT TO CALL FOR ASSISTANCE BEFORE GETTING UP. NO NEEDS THIS TIME. WILL CONTINUE TO MONITOR.
[2019-01-30] MEDS ORDERED: IBUPROFEN400 MG PO (21:00)
[2019-01-30 22:02] VITALS: BP 109/66; Ht 177.8 cm; Wt 93.2 kg
[2019-01-31] VITALS: BP 100/55
[2019-01-31 04:00] VITALS: BP 110/64
--- NOTE | 2019-01-31 07:10 | NUR ---
PT RESTING IN BED. NO SIGNS OF DISTRESS. IV TO LEFT CHEST PORT PATENT NO REDNESS OR TENDERNESS. ON TELEMETRY 60 PACING. ON 2.5L NC. DENIES ANY FURTHER NEED AT THIS TIME. CALL LIGHT IN REACH. BED LOW POSITION. FAMILY AT BEDSIDE AT THIS TIME.
[2019-01-31 08:04] VITALS: BP 135/78
--- NOTE | 2019-01-31 10:44 | NUR ---
PER SHARMILA LEO APN, FLU VACCINE CONTRAINDICATED AT THIS TIME PT IS ABOUT TO START CHEMO.
--- NOTE | 2019-01-31 11:58 | NUR ---
DISCHARGE INSTRCUTIONS GIVEN. SEEMS TO UNDERSTAND INSTRCUTIONS. PORT DEACCESSED BY RN. DENIES ANY FURTHER NEED AT THIS TIME. LEFT WITH HOSPITAL STAFF TO GO HOME IN PERSONAL RIDE WITH .
== END 2019-01-31 11:59 | disposition home or self-care (01) | DRG 312 ==
LOC: D.ER 14:56 → D.MS 18:10
PROVIDERS: Emergency Medicine; ADMIT Legal Medicine; ATTEND Legal Medicine
DX: I95.1 Orthostatic hypotension (principal); C85.90 Non-Hodgkin lymphoma, unspecified, unspecified site; D72.819 Decreased white blood cell count, unspecified; D64.9 Anemia, unspecified; B34.9 Viral infection, unspecified; D69.6 Thrombocytopenia, unspecified; R50.9 Fever, unspecified

== ENCOUNTER → 2019-02-08 12:28 | Outpatient (CLI) | payer MEDICARE, BC ==
[2019-01-30 22:02] VITALS: BMI 29.4
[~2019-02-08 12:28] MED LIST changes: +IBUPROFEN400 MG PO
== END | disposition home or self-care (01) ==
LOC: D.RAD 12:28
PROVIDERS: ATTEND Legal Medicine
DX: J44.9 Chronic obstructive pulmonary disease, unspecified (principal)

== ENCOUNTER → 2019-03-01 12:12 | Outpatient (CLI) | payer MEDICARE, BC ==
[2019-01-30 22:02] VITALS: BMI 29.4
== END | disposition home or self-care (01) ==
LOC: D.RAD 12:12 → D.RT 13:00
PROVIDERS: ATTEND Internal Medicine Pulmonary Disease
DX: J44.9 Chronic obstructive pulmonary disease, unspecified (principal)

== ENCOUNTER 2019-12-09 12:15 | Emergency (ER) | payer MEDICARE, BC ==
[~2019-12-09] VITALS: Ht 177.8 cm; Wt 88.6 kg
[2019-12-09 12:21] VITALS: Ht 177.8 cm; Wt 88.6 kg
[2019-12-09 13:48] LABS: BASOPHILS 0.2 % (0-2); EOSINOPHILS 0 % (0-7); HEMATOCRIT 33.5 % (42.0-54.0); HEMOGLOBIN 11.3 g/dL (13.5-17.5); IMMATURE GRANULOCYTES 0.2 % (0-5); LYMPHOCYTES 21.4 % (15-50); MCH 35.1 pg (26.0-34.0); MCHC 33.7 g/dL (31.0-37.0); MEAN PLATELET VOLUME 9.1 fL (7.4-10.4); MONOCYTES 8.5 % (2-11); NEUTROPHILS 69.7 % (40-80); PLATELET COUNT 152 10x3/uL (130-400); RBC 3.22 10x6/uL (4.20-6.10); RDW 12.9 % (11.5-14.5); WBC 4.8 10x3/uL (4.8-10.8)
[2019-12-09 13:59] LABS: CALC OSMOLALITY 275 mosm/kg (275-300); CALCIUM 8.6 mg/dL (8.5-10.1); CARBON DIOXIDE 28.8 mmol/L (21.0-32.0); CHLORIDE - SERUM 100 mmol/L (98-107); GLUCOSE 101 mg/dL (74-106); POTASSIUM - SERUM 3.8 mmol/L (3.5-5.1); SODIUM 138 mmol/L (136-145); UREA NITROGEN 13 mg/dL (7-18); eGFR NON AFRICAN AMERICAN 78 mL/min (90-120)
[2019-12-09 14:03] LABS: APTT 30.7 SECONDS (22.8-39.4); INR 1.01 (0.85-1.17); PROTIME 13.2 SECONDS (11.6-15.0)
[2019-12-09 14:16] LABS: ALBUMIN 2.6 g/dL (3.4-5.0); ALKALINE PHOSPHATASE 86 U/L (30-120); ALT (SGPT) 71 U/L (10-68); BILIRUBIN - TOTAL 0.27 mg/dL (0.2-1.3); CREATINE KINASE 48 UL (21-232); PRO BNP 387 pg/mL (0-125); PROTEIN - SERUM 7.1 g/dL (6.4-8.2)
[2019-12-09 14:17] LABS: TROPONIN-I 0.017 ng/mL (0.000-0.060)
[2019-12-09 15:15] LABS: BILIRUBIN NEGATIVE (NEGATIVE); KETONE NEGATIVE (NEGATIVE); NITRITE NEGATIVE (NEGATIVE); UROBILINOGEN NORMAL mg/dL (< 2)
[2019-12-09 17:39] VITALS: BP 131/78
== END 2019-12-09 17:40 | disposition home or self-care (01) ==
LOC: D.ER 12:15
PROVIDERS: Emergency Medicine
DX: R06.02 Shortness of breath (principal); U07.1 COVID-19; J44.9 Chronic obstructive pulmonary disease, unspecified

== ENCOUNTER → 2020-06-05 12:19 | Outpatient (CLI) | payer MEDICARE, BC ==
[2019-12-09 12:21] VITALS: BMI 28.0
== END | disposition home or self-care (01) ==
LOC: D.LAB 12:19
PROVIDERS: ATTEND Internal Medicine Pulmonary Disease
DX: Z11.52 Encounter for screening for COVID-19 (principal)

== ENCOUNTER → 2020-06-09 10:01 | Outpatient (CLI) | payer MEDICARE, BC ==
[2019-12-09 12:21] VITALS: BMI 28.0
== END | disposition home or self-care (01) ==
LOC: D.RT 10:00
PROVIDERS: ATTEND Internal Medicine Pulmonary Disease
DX: J44.9 Chronic obstructive pulmonary disease, unspecified (principal)